=== PATIENT | female | born 1945 | race African-American/Black ===

== ENCOUNTER 2016-11-20 20:15 | Emergency (ER) | payer MEDICARE, BC ==
--- NOTE | ~2016-11-20 | CT71 ---
[facility] A Service of [facility] RADIOLOGY TEXT RESULTS PATIENT: WILNER FINCH LOCATION: [facility] : [birth year] UNIT #: [id number] AGE: [address]: Eliazar Alvarado MD SEX: F ORDER DR: [id number] [facility] [address] [place], [place] [address] [id number] E MR#: [id number] Acc #: [id number] NAME: WILNER FINCH : 1945 SEX: F STUDY DATE/TIME: 11/20/2016 20:22 UNIT: [facility] ROOM: STUDY DESCRIPTION: CT Head Wo Contrast Attending Physician: Eliazar Alvarado M.D. Referring Physician: Trevor Brizuela M.D. Ordering Physician: Vineet Bowen M.D. Primary Care Physician: Trevor Brizuela M.D. MEDICAL IMAGING REPORT This report is preliminary unless electronic signature is present EXAM CT head INDICATIONS Left leg weakness and numbness. 2-day duration. TECHNIQUE CT of the head without contrast. This CT exam was performed with one or more of the following radiation dose reduction techniques: Automatic exposure control, adjustment of mA and/or kV according to patient size, and iterative reconstruction. COMPARISONS None available. FINDINGS There is a small intraparenchymal hematoma centered around the right thalamus measuring 1.1 x 0.7 cm. This is likely a hemorrhagic thalamic infarct. There is some mild global cerebral atrophy. Ventricles and basilar cisterns are normal in size and configuration. No extraaxial collections. No acute osseous abnormalities. Evaluation of the visualized paranasal sinuses and mastoid air cells are clear. IMPRESSION 1. 1.1 cm intraparenchymal hemorrhage in the right thalamus likely represents a small hemorrhagic infarct. 2. No significant mass effect or edema. Emergent findings were called to the ER physician at 21:00 on 11/20/2016. [facility] A Service of [facility] RADIOLOGY TEXT RESULTS PATIENT: WILNER FINCH LOCATION: [facility] : [birth year] UNIT #: [id number] AGE: [address]: Eliazar Alvarado MD SEX: F ORDER DR: Dictated by... Carlos Packer M.D. THIS IS AN ELECTRONICALLY VERIFIED REPORT Carlos Packer M.D. at 11/21/2016 7:56 AM RPC/sera TD: 11/21/2016 00:35 JOB #: [id number] MEDICAL IMAGING REPORT Page 1 of 1 COPY
--- NOTE | ~2016-11-20 | EKG ---
PATIENT: WILNER FINCH UNIT #: [id number] Ventricular Rate: 70 BPM Atrial Rate: 70 BPM P-R Interval: 160 ms QRS Duration: 82 ms Q-T Interval: 450 ms QTC Calculation(Bezet): 486 ms P [place]: 50 degrees Calculated R [place]: 61 degrees Calculated T [place]: 28 degrees Diagnosis Line: Sinus rhythm with occasional Premature ventricular Diagnosis Line: complexes Diagnosis Line: Nonspecific T wave abnormality Diagnosis Line: Prolonged QT Diagnosis Line: Abnormal ECG Diagnosis Line: When compared with ECG of 05-MAY-2011 06:15, Diagnosis Line: Premature ventricular complexes are now Present Diagnosis Line: Confirmed by JAYANT IRAHETA MD ([id number]) on 11/21/2016 Diagnosis Line: 7:17:29 PM INTERPRETING MD: ESEQUIEL LEVIN
[2016-11-20 20:13] LABS: BASOPHIL# 0.1 X10e3 (0-0.3); EOSINOPHIL# 0.1 X10e3 (0-0.7); EOSINOPHIL% 2.2 % (0.0-7.0); HEMATOCRIT 35.8 % (35.0-45.0); HEMOGLOBIN 11.6 gm/dL (12.0-16.0); LYMPHOCYTE# 1.9 X10e3 (1.0-3.5); LYMPHOCYTE% 32.9 % (17.0-45.0); MEAN CELL VOLUME 87.2 FL (83-96); MEAN CORPUSCULAR HEMOGLOBIN 28.2 PG (28-34); MEAN CORPUSCULAR HGB CONC 32.4 g/dL (30-36); MEAN PLATELET VOLUME 7.4 FL (6.5-11.5); MONOCYTE# 0.3 X10e3 (0-1.0); MONOCYTE% 5.6 % (3.0-12.0); NEUTROPHIL# 3.4 X10e3 (1.5-7.1); NEUTROPHIL% 58.3 % (40-75); PLATELET COUNT 230 X10e3 (140-420); RED CELL DISTRIBUTION WIDTH 14.7 % (11.0-15.5); WHITE BLOOD COUNT 5.8 X10e3 (4.0-10.5)
[2016-11-20 20:14] LABS: DIFF IND NO
[~2016-11-20 20:15] MED LIST: ACETAMINOPHEN PO; ALBUTEROL17 GM INH; LORTAB 5/500 TA1 TA1 PO; MEDROL DOSEPAK4 MG DOB; MEDROL PO; MIRALAX17 GM; MIRALAX17 GM PO; NORVASC PO; SKELAXIN PO; TOPROL XL PO; VIBRAMYCIN100 M1 PO; ZITHROMAX PO
[2016-11-20 20:24] LABS: INR 0.9; PARTIAL THROMBOPLASTIN TIME 27.4 SECONDS (23.5-31.3); PROTHROMBIN TIME (PATIENT) 9.6 SECONDS (9.6-11.5)
[2016-11-20 20:26] LABS: POC - CKMB 2.2 ng/mL (0.0-7.9); POC - TROPONIN <0.05 ng/mL (<=0.05)
[2016-11-20 20:37] LABS: ALBUMIN SERUM 4.1 g/dL (3.5-5.0); ALKALINE PHOSPHATASE 87 U/L (32-92); ALT (SGPT) 12 U/L (10-40); AST (SGOT) 20 U/L (10-42); BILIRUBIN,TOTAL 0.9 mg/dL (0.2-2.0); BLOOD UREA NITROGEN 14 mg/dL (9-23); CALCIUM SERUM 9.2 mg/dL (8.4-10.2); CARBON DIOXIDE 29 mmol/L (22-31); CHLORIDE 102 mmol/L (100-111); CREATININE SERUM 0.8 mg/dL (0.6-1.4); GLUCOSE FASTING 85 mg/dL (70-110); POTASSIUM 3.7 mmol/L (3.5-5.1); PROTEIN TOTAL SERUM 7.6 g/dL (6.0-8.3); SODIUM 139 mmol/L (135-145)
[2016-11-20 20:43] LABS: BILIRUBIN, DIRECT <0.1 mg/dL (0.0-0.2); BILIRUBIN,INDIRECT 0.8 mg/dL (0.0-0.9)
== END 2016-11-20 21:37 | disposition hospice, home (50) ==
LOC: CED 20:15
PROVIDERS: Emergency Medicine
DX: I61.9 Nontraumatic intracerebral hemorrhage, unspecified (principal); I10 Essential (primary) hypertension; Z88.0 Allergy status to penicillin; Z90.710 Acquired absence of both cervix and uterus
CPT/HCPCS: 36415; 70450; 80048; 80076; 82553; 82947; 84484; 85025; 85610; 85730; 93005; 96374; 99285; J0360; J1815

== ENCOUNTER 2016-12-07 21:33 | Emergency (ER) | payer MEDICARE, BC ==
--- NOTE | ~2016-12-07 | EKG ---
PATIENT: WILNER FINCH UNIT #: [id number] Ventricular Rate: 65 BPM Atrial Rate: 65 BPM P-R Interval: 172 ms QRS Duration: 86 ms Q-T Interval: 430 ms QTC Calculation(Bezet): 447 ms P [place]: 76 degrees Calculated R [place]: 66 degrees Calculated T [place]: 44 degrees Diagnosis Line: Normal sinus rhythm Diagnosis Line: Normal ECG Diagnosis Line: No previous ECGs available Diagnosis Line: Confirmed by JAYANT IRAHETA MD ([id number]) on 12/08/2016 Diagnosis Line: 10:11:07 PM INTERPRETING MD: ESEQUIEL LEVIN
--- NOTE | ~2016-12-07 | CR72 ---
[facility] A Service of [facility] RADIOLOGY TEXT RESULTS PATIENT: WILNER FINCH LOCATION: [facility] : [birth year] UNIT #: [id number] AGE: [address]: Eliazar Hall MD SEX: F ORDER DR: [id number] [facility] [address] [place], [place] [address] [id number] E MR#: [id number] Acc #: [id number] NAME: WILNER FINCH : 1945 SEX: F STUDY DATE/TIME: 12/07/2016 20:47 UNIT: [facility] ROOM: STUDY DESCRIPTION: CR Chest Single View Portable Attending Physician: Eliazar Hall M.D. Ordering Physician: Eliazar Hall M.D. Primary Care Physician: Trevor Brizuela M.D. MEDICAL IMAGING REPORT This report is preliminary unless electronic signature is present EXAM Portable chest. HISTORY 71-year-old female with congestion and increasing blood pressure since yesterday. COMPARISON 05/04/2011 FINDINGS Portable view of the chest demonstrates moderate lung volumes satisfactory technique. No infiltrates or effusions. 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 Heart size within normal limits. Mild tortuosity of the aorta. No pneumothorax. Dictated by... Shantell Salvador M.D. THIS IS AN ELECTRONICALLY VERIFIED REPORT Shantell Salvador M.D. at 12/08/2016 1:08 PM BRADLEY/jerman TD: 12/07/2016 23:30 JOB #: [id number] MEDICAL IMAGING REPORT Page 1 of 1 COPY
--- NOTE | ~2016-12-07 | CT71 ---
[facility] A Service of [facility] RADIOLOGY TEXT RESULTS PATIENT: WILNER FINCH LOCATION: [place] : [birth year] UNIT #: [id number] AGE: [address]: Eliazar Hall MD SEX: F ORDER DR: [id number] [facility] [address] [place], [place] [address] [id number] E MR#: [id number] Acc #: [id number] NAME: WILNER FINCH : 1945 SEX: F STUDY DATE/TIME: 12/07/2016 20:56 UNIT: [facility] ROOM: STUDY DESCRIPTION: CT Head Wo Contrast Attending Physician: Eliazar Hall M.D. Ordering Physician: Eliazar Hall M.D. Primary Care Physician: Trevor Brizuela M.D. MEDICAL IMAGING REPORT This report is preliminary unless electronic signature is present EXAM CT brain without contrast HISTORY Lightheaded today. Recent intracranial bleed. FINDINGS CT brain without contrast is compared to 11/20/[address] exam was performed with one or more of the following radiation dose reduction techniques: Automatic exposure control, adjustment of mA and/or kV according to patient size, and iterative reconstruction. There has been interval resolution of the intraparenchymal 11 mm hematoma in the right thalamus, with approximately 1 cm lacunar infarct at the site of the previously noted hemorrhage. No new intracranial blood. Mild chronic ischemic changes in the deep white matter bilaterally. No midline shift or ventricular dilatation or extraaxial fluid collection. IMPRESSION 1. Interval resolution of the 1.1 cm intraparenchymal hematoma in the right thalamus, with approximately 1 cm lacunar infarct now present in this location. 2. No new intracranial hemorrhage. 3. Mild chronic ischemic changes in the deep white matter bilaterally. Dictated by... Christiano Newby M.D. THIS IS AN ELECTRONICALLY VERIFIED REPORT Christiano Newby M.D. at 12/08/2016 8:02 PM DFL/psc [facility] A Service of [facility] RADIOLOGY TEXT RESULTS PATIENT: WILNER FINCH LOCATION: [facility] : [birth year] UNIT #: [id number] AGE: [address]: Eliazar Hall MD SEX: F ORDER DR: TD: 12/07/2016 23:39 JOB #: [id number] MEDICAL IMAGING REPORT Page 1 of 1 COPY
[2016-12-07 19:59] LABS: URINE SOURCE CLEAN CATCH
[2016-12-07 20:02] LABS: BASOPHIL% 0.7 % (0-2.5); EOSINOPHIL# 0.1 X10e3 (0-0.7); HEMATOCRIT 36.8 % (35.0-45.0); HEMOGLOBIN 11.9 gm/dL (12.0-16.0); LYMPHOCYTE# 1.7 X10e3 (1.0-3.5); LYMPHOCYTE% 28.7 % (17.0-45.0); MEAN CELL VOLUME 87.1 FL (83-96); MEAN CORPUSCULAR HEMOGLOBIN 28.1 PG (28-34); MEAN CORPUSCULAR HGB CONC 32.2 g/dL (30-36); MEAN PLATELET VOLUME 8.2 FL (6.5-11.5); MONOCYTE# 0.3 X10e3 (0-1.0); NEUTROPHIL# 3.9 X10e3 (1.5-7.1); NEUTROPHIL% 63.6 % (40-75); PLATELET COUNT 252 X10e3 (140-420); RED BLOOD COUNT 4.22 X10e (3.90-5.30); RED CELL DISTRIBUTION WIDTH 14.2 % (11.0-15.5); WHITE BLOOD COUNT 6.1 X10e3 (4.0-10.5)
[2016-12-07 20:04] LABS: URINE APPEARANCE CLEAR; URINE BILIRUBIN NEG (NEG); URINE BLOOD NEG (NEG); URINE COLOR YELLOW; URINE GLUCOSE NEG (NEG); URINE KETONE NEG (NEG); URINE LEUKOCYTE ESTERASE NEG (NEG); URINE NITRATE NEG (NEG); URINE PROTEIN NEG (NEG); URINE SPECIFIC GRAVITY 1.003 (1.003-1.035); URINE UROBILINOGEN 0.2 MG/DL (NEG)
[2016-12-07 20:05] LABS: DIFF IND NO
[2016-12-07 20:10] LABS: CULTURE INDICATED? NO
[2016-12-07 20:12] LABS: POC - CKMB 1.9 ng/mL (0.0-7.9); POC - TROPONIN <0.05 ng/mL (<=0.05)
[2016-12-07 20:25] LABS: ALBUMIN SERUM 4.4 g/dL (3.5-5.0); BILIRUBIN, DIRECT 0.1 mg/dL (0.0-0.2); BILIRUBIN,INDIRECT 0.9 mg/dL (0.0-0.9); BUN/CREATININE RATIO 18.75; CALCIUM SERUM 9.3 mg/dL (8.4-10.2); CREATININE SERUM 0.8 mg/dL (0.6-1.4); POTASSIUM 3.6 mmol/L (3.5-5.1); PROTEIN TOTAL SERUM 7.9 g/dL (6.0-8.3)
[2016-12-07 21:45] LABS: POC - CKMB 1.4 ng/mL (0.0-7.9); POC - TROPONIN <0.05 ng/mL (<=0.05)
== END 2016-12-07 22:30 | disposition home or self-care (01) ==
LOC: CED 21:33
PROVIDERS: Emergency Medicine
DX: I10 Essential (primary) hypertension (principal); F17.210 Nicotine dependence, cigarettes, uncomplicated; Z88.0 Allergy status to penicillin
CPT/HCPCS: 36415; 70450; 71010; 80048; 80076; 81003; 82553; 84484; 85025; 93005; 99284

== ENCOUNTER 2016-12-27 20:41 | Emergency (ER) | payer MEDICARE, BC | END 2016-12-27 22:35 | disposition home or self-care (01) | LOC: CED 20:41 | DX: M54.31 Sciatica, right side (principal); E78.5 Hyperlipidemia, unspecified; I10 Essential (primary) hypertension; Z90.710 Acquired absence of both cervix and uterus; Z86.73 Personal history of transient ischemic attack (TIA), and cerebral infarction without residual deficits; Z88.0 Allergy status to penicillin | CPT/HCPCS: 99282 ==

== ENCOUNTER 2017-04-10 20:52 | Emergency (ER) | payer OTHER ==
[~2017-04-10] VITALS: Ht 165.1 cm; Wt 75.7 kg
--- NOTE | ~2017-04-10 | CT2 ---
[facility] A Service of [facility] RADIOLOGY TEXT RESULTS PATIENT: WILNER FINCH LOCATION: [facility] : [birth year] UNIT #: [id number] AGE: [address]: Eliazar Hall MD SEX: F ORDER DR: [id number] [facility] [address] [place], [place] [address] [id number] E MR#: [id number] Acc #: [id number] NAME: WILNER FINCH : 1945 SEX: F STUDY DATE/TIME: 04/11/2017 0:36 UNIT: [facility] ROOM: STUDY DESCRIPTION: CT Abd and Pelv W Cont Attending Physician: Eliazar Hall M.D. Ordering Physician: Eliazar Hall M.D. Primary Care Physician: Trevor Brizuela M.D. MEDICAL IMAGING REPORT This report is preliminary unless electronic signature is present EXAM CT abdomen and pelvis with IV contrast HISTORY Abdomen and pelvic pain for [address] abdomen and pelvis was performed with IV contrast. This CT exam was performed with one or more of the following radiation dose reduction techniques: automatic control, adjustment of mA and/or kV according to patient size, and iterative reconstruction. CT ABDOMEN: The liver, gallbladder, spleen, pancreas, kidneys, and adrenal glands are normal. No bowel dilatation. No ascites. No inflammatory stranding. Normal caliber abdominal aorta. CT PELVIS: No free fluid or inflammatory stranding. Hysterectomy. The appendix is not visualized. Urinary bladder is unremarkable. Well-circumscribed lucent and peripherally sclerotic benign-appearing intramedullary lesion in the intertrochanteric right hip is stable compared to 07/27/2013. This appears benign. IMPRESSION 1. No acute findings. 2. No inflammatory stranding or free fluid. 3. The appendix is not visualized. Dictated by... Christiano Newby M.D. THIS IS AN ELECTRONICALLY VERIFIED REPORT Christiano Newby M.D. at 04/12/2017 6:29 AM [facility] A Service of [facility] RADIOLOGY TEXT RESULTS PATIENT: WILNER FINCH LOCATION: [facility] : [birth year] UNIT #: [id number] AGE: [address]: Eliazar Hall MD SEX: F ORDER DR: RAFAL/rnr TD: 04/12/2017 03:28 JOB #: [id number] MEDICAL IMAGING REPORT Page 1 of 1 COPY
[2017-04-10 21:24] LABS: BASOPHIL% 0.9 % (0-2.5); EOSINOPHIL# 0.1 X10e3 (0-0.7); EOSINOPHIL% 2.2 % (0.0-7.0); HEMOGLOBIN 10.7 gm/dL (12.0-16.0); LYMPHOCYTE# 1.8 X10e3 (1.0-3.5); LYMPHOCYTE% 30.6 % (17.0-45.0); MEAN CELL VOLUME 88.8 FL (83-96); MEAN CORPUSCULAR HEMOGLOBIN 28.8 PG (28-34); MEAN CORPUSCULAR HGB CONC 32.4 g/dL (30-36); MEAN PLATELET VOLUME 7.1 FL (6.5-11.5); MONOCYTE# 0.3 X10e3 (0-1.0); MONOCYTE% 5.1 % (3.0-12.0); NEUTROPHIL# 3.5 X10e3 (1.5-7.1); NEUTROPHIL% 61.2 % (40-75); PLATELET COUNT 244 X10e3 (140-420); RED BLOOD COUNT 3.71 X10e (3.90-5.30); RED CELL DISTRIBUTION WIDTH 14.1 % (11.0-15.5); WHITE BLOOD COUNT 5.8 X10e3 (4.0-10.5)
[2017-04-10 21:26] LABS: DIFF IND NO
[2017-04-10 21:47] LABS: BILIRUBIN, DIRECT 0.1 mg/dL (0.0-0.2); BILIRUBIN,INDIRECT 0.8 mg/dL (0.0-0.9); BILIRUBIN,TOTAL 0.9 mg/dL (0.2-2.0); BUN/CREATININE RATIO 17.5; CALCIUM SERUM 8.9 mg/dL (8.4-10.2); CREATININE SERUM 0.8 mg/dL (0.6-1.4); POTASSIUM 3.6 mmol/L (3.5-5.1); PROTEIN TOTAL SERUM 7.5 g/dL (6.0-8.3)
[2017-04-10 23:56] LABS: URINE SOURCE CLEAN CATCH
[2017-04-11 00:01] LABS: URINE APPEARANCE CLEAR; URINE BILIRUBIN NEG (NEG); URINE BLOOD NEG (NEG); URINE COLOR YELLOW; URINE GLUCOSE NEG (NEG); URINE KETONE TRACE (NEG); URINE LEUKOCYTE ESTERASE TRACE (NEG); URINE NITRATE NEG (NEG); URINE PROTEIN NEG (NEG); URINE UROBILINOGEN 0.2 MG/DL (NEG)
[2017-04-11 00:26] LABS: URBCS1 AUWI 0-2 /[HPF] (0-2)
[2017-04-11 00:27] LABS: URINE SQUAMOUS EPITHELIAL CELL FEW /[HPF]
[2017-04-11 00:28] LABS: CULTURE INDICATED? NO
== END 2017-04-11 02:10 | disposition home or self-care (01) ==
LOC: CED 20:52
DX: R10.9 Unspecified abdominal pain (principal); I10 Essential (primary) hypertension; Z90.710 Acquired absence of both cervix and uterus; Z88.0 Allergy status to penicillin
CPT/HCPCS: 36415; 74177; 80048; 80076; 81003; 83690; 85025; 99284; Q9967